=== PATIENT | male | born 1950 | race American Indian/Alaskan Native ===

== ENCOUNTER 2020-12-28 08:04 | Emergency (ER) | payer MEDICARE ==
[2020-12-28 08:22] VITALS: BP 165/89
--- NOTE | 2020-12-28 10:03 | Emergency Department Report ---
Chief Complaint: Extremity Problem,Nontraumatic Stated Complaint: pain to bottim of foot Time Seen by Provider: 12/28/20 09:58 - HPI History of Present Illness: 70-year-old -[place] male presents to the emergency room for chronic right foot pain x6 months. Patient denies any injuries. He does state that he is constantly walking on his feet. Patient reports he has tried Aleve. Patient reports the pain is worse when he gets ready to lay down. Patient does have a primary care provider with the [facility] but has not followed up with them. - Exam Vital Signs: Vital Signs 12/28/20 08:18 Temperature 97.8 F Pulse Rate 63 Respiratory 20 Rate Blood Pressure 165/89 O2 Sat by Pulse 96 Oximetry Physical Exam: General: Awake, appropriately interactive, no acute distress. Neck: Supple. Full range of motion intact. Cardiovascular: Normal peripheral perfusion. Pulmonary: No respiratory distress. Patient is speaking normally without use of accessory muscles. Skin: No apparent rashes or lesions. On feet. Neurological: No facial asymmetry. Speech is clear. Follows commands. Patient is alert and oriented. Musculoskeletal: Full range of motion, No tenderness to palpate nonerythematous no edema test appreciated. Able to bear weight and ambulate without difficulty. Distal neurovascular and motor/sensory function is intact. Psych: Cooperative. Appropriate mood and affect. MSE screening note: Focused history and physical exam performed. Due to findings the following was ordered: 70-year-old -[place]ron[place] male presents to the emergency room for chronic right foot pain x6 months. Patient denies any injuries. He does state that he is constantly walking on his feet. Patient reports he has tried Aleve. Patient reports the pain is worse when he gets ready to lay down. Patient does have a primary care provider with the [facility] but has not followed up with them. ED Disposition for MSE Is pt being admited?: No Does the pt Need Aspirin: No Condition: Stable Instructions: Foot Pain Additional Instructions: Recommend to change her shoes to a walking tennis shoe. Take her Tylenol or ibuprofen for pain. Decrease your time walking as this will improve your pain to your feet. Be sure to increase your fluid intake. Very important for you to follow-up with your primary care provider. Place a referral for podiatry. Referrals: [facility] [Outside] - 3-5 Days CHARISSE HARMON DPM [Staff Physician] - 3-5 Days Time of Disposition: 10:04
== END 2020-12-28 10:05 ==
LOC: ED 08:04
DX: M79.671 Pain in right foot (principal); G89.29 Other chronic pain
CPT/HCPCS: 99281